=== PATIENT | male | born 1935 | race Caucasian/White ===

== ENCOUNTER → 2020-06-08 | Outpatient (CLI) | payer OTHER | LOC: LAB 13:02 | PROVIDERS: ATTEND Anesthesiology | DX: Z01.818 Encounter for other preprocedural examination (principal); Z11.59 Encounter for screening for other viral diseases ==

== ENCOUNTER 2020-06-14 10:42 | Day surgery (SDC) | payer OTHER, MEDICARE ==
[~2020-06-14] VITALS: Ht 160 cm; Wt 83.9 kg
[~2020-06-14 10:42] MED LIST: ASA81BEC PO; BUPROPION XL150 MG PO; CARBIDOPA-LEVO1 EAC8 PO; CYANOCOBAL1000 MCG/1 IM; ELIQUIS2.5 MG PO; FUROSEMIDE 40 M40 M1 PO; HUMALOG KW100 UNIT/1 SUBQ; K-DUR 20 MEQ T20 MEQ PO; LEVOTHYROXINE25 MCG PO; METFORMIN HCL500 MG PO; MIDODRINE HCL 55 M1 PO; MIRTAZAPINE7.5 MG PO; MULTIVITAMINS1 EAC7 PO; NEURONTIN 300M300 M2 PO; OMEPRAZOLE 20 M20 M1 PO; SENNA PLUS TAB1 EACH PO; TUMS200 MG PO
[2020-06-14 12:01] VITALS: BP 122/72; BP 160/84
--- NOTE | 2020-06-18 06:16 | O ---
[facility] [place] [address] OPERATIVE REPORT Name: LLOYD OJEDA Philip Room #: DEP [facility]#: [id number] Admission: 06/14/20 Attend Phys: Felipe Lamar MD Discharge: 06/14/20 Date of : 37 Report #: [id number] THIS REPORT FOR: cc: Soniya Bansal Sally J. DO White,Felipe Navas MD ~ CC: Dr. 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 PROCEDURE: Bilateral upper lid entropion repair by myocutaneous advancement flap. SURGEON: Felipe Lamar MD [employer]W [employer]AT OPERATOR: None. ANESTHESIA: MAC. COMPLICATIONS: None. 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 He presents today for a bilateral upper lid procedure in order to improve his ocular surface and reduce his risk for loss of the eye. Informed consent was obtained to include but not limited to the potential risk for loss of vision, bleeding, infection, failure to improve the problem, the potential need for further surgery or treatment. DESCRIPTION OF PROCEDURE: The patient was taken to the operating room where 2% Xylocaine with epinephrine mixed with equal parts of 0.75% Marcaine with Wydase was administered transcutaneously and transconjunctivally to each upper lid. The patient was subsequently prepped and draped in the usual sterile fashion. An #11-blade was then used to separate the anterior from the posterior lamella across the buckley line in the right upper lid. The dissection was carried out in the pretarsal space to allow a myocutaneous flap to be elevated and rotated [facility] [address] [place] [address] OPERATIVE REPORT Name: LLOYD OJEDA Room #: DEP [facility]#: [id number] Admission: 06/14/20 Attend Phys: Felipe Lamar MD Discharge: 06/14/20 Date of : 37 Report #: [id number] superiorly. Hemostasis was then re-achieved. The flap was then secured in its advanced position with multiple interrupted 5-0 chromic sutures. This everted the lashes well and varsha the eyelid margin anteriorly, superiorly. Attention was then turned to the left upper lid where the same procedures were performed. The wounds were then cleaned and dressed with erythromycin ointment. The patient subsequently transported to the recovery area, having tolerated the procedures well with no anesthetic or operative complications being noted. Thank you very much. <ELECTRONICALLY SIGNED> By: Felipe Lamar MD 06/18/20 0616 [id number] Felipe Lamar MD /nt
== END 2020-06-14 14:00 | disposition home or self-care (01) ==
LOC: OR 10:42 → TBA 10:43 → OR 13:31
PROVIDERS: ATTEND Ophthalmology
DX: H02.021 Mechanical entropion of right upper eyelid (principal); H02.024 Mechanical entropion of left upper eyelid; H18.9 Unspecified disorder of cornea; I13.0 Hypertensive heart and chronic kidney disease with heart failure and stage 1 through stage 4 chronic kidney disease, or unspecified chronic kidney disease; E11.22 Type 2 diabetes mellitus with diabetic chronic kidney disease; N18.3 Chronic kidney disease, stage 3 (moderate); I50.22 Chronic systolic (congestive) heart failure; I48.91 Unspecified atrial fibrillation; I42.9 Cardiomyopathy, unspecified; M79.7 Fibromyalgia; Z95.0 Presence of cardiac pacemaker; M06.9 Rheumatoid arthritis, unspecified; G20 Parkinson's disease; Z98.890 Other specified postprocedural states; Z79.899 Other long term (current) drug therapy
CPT/HCPCS: 50010; 50101; 50386; 50398; 51636; 56531; 62110; 62850; 70005